=== PATIENT | male | born 1955 | race African-American/Black ===

== ENCOUNTER 2016-12-11 22:33 | Emergency (ER) | payer MEDICARE, OTHER ==
[~2016-12-11] VITALS: Ht 180.3 cm; Wt 135.0 kg
[~2016-12-11 22:33] MED LIST: CEPHALEXIN500 MG OR; DILANTIN100 MG OR; HYDROCO/APAP1 TA9 PO; LORTAB 5 OR; METOPROL TAR25 M1 OR; PENICILLN VK500 MG PO; TEGRETOL100 MG OR; TERAZOSIN2 MG OR
[2016-12-12] MEDS ORDERED: AMOXICILLIN500 MG PO (00:01)
[2016-12-12] MEDS ORDERED: PERCOCET 5/325M1 TAB PO (00:01)
[2016-12-12 00:12] VITALS: BP 157/100
== END 2016-12-12 00:14 | disposition home or self-care (01) ==
LOC: ED 22:33
DX: K08.89 Other specified disorders of teeth and supporting structures (principal); K05.10 Chronic gingivitis, plaque induced

== ENCOUNTER 2022-01-04 10:14 | Emergency (ER) | payer OTHER, MEDICARE ==
[2022-01-04] VITALS (8 sets, daily range): BP systolic 210–242; BP diastolic 112–129
[~2022-01-04] VITALS: Ht 180.3 cm; Wt 124.2 kg
[~2022-01-04 10:14] MED LIST changes: +AMOXICILLIN500 MG PO; +PERCOCET 5/325M1 TAB PO
[2022-01-04] MEDS ORDERED: CLONIDINE0.3 MG PO (10:41)
[2022-01-04] MEDS ORDERED: NAPROXEN500 MG PO (16:23)
[2022-01-04] MEDS ORDERED: CYCLOBENZAPRINE10 MG PO (16:23)
== END 2022-01-04 16:35 | disposition home or self-care (01) | DRG 563 ==
LOC: ED 10:14
DX: S86.912A Strain of unspecified muscle(s) and tendon(s) at lower leg level, left leg, initial encounter (principal); I10 Essential (primary) hypertension; E11.9 Type 2 diabetes mellitus without complications; E78.5 Hyperlipidemia, unspecified; X50.0XXA Overexertion from strenuous movement or load, initial encounter